=== PATIENT | female | born 1945 | race Caucasian/White ===

== ENCOUNTER 2022-03-28 10:38 | Day surgery (SDC) | payer MEDICARE, OTHER ==
[2022-03-24 14:08] VITALS: BMI 39.8
== END 2022-03-28 15:30 | disposition home or self-care (01) ==
LOC: CSHSDC 10:38
PROVIDERS: ATTEND Surgery
PROC: 0DD68ZX Extraction of Stomach, Via Natural or Artificial Opening Endoscopic, Diagnostic (ICD-10-PCS; principal; 2022-03-28)
DX: K29.50 Unspecified chronic gastritis without bleeding (principal); K31.A0 Gastric intestinal metaplasia, unspecified; K21.9 Gastro-esophageal reflux disease without esophagitis; K44.9 Diaphragmatic hernia without obstruction or gangrene; K31.7 Polyp of stomach and duodenum; I48.91 Unspecified atrial fibrillation; E66.9 Obesity, unspecified; Z87.891 Personal history of nicotine dependence; E11.9 Type 2 diabetes mellitus without complications; Z95.0 Presence of cardiac pacemaker; Z79.899 Other long term (current) drug therapy; Z88.8 Allergy status to other drugs, medicaments and biological substances; Z68.37 Body mass index [BMI] 37.0-37.9, adult
CPT/HCPCS: 88305; 88342

== ENCOUNTER 2024-04-17 16:12 | Emergency (ER) | payer MEDICARE, OTHER ==
[2024-04-17] MEDS ORDERED: Acetaminophen 500 MG TAB ONE (16:40)
[2024-04-17 17:52] LABS: #Basophils 0.03 10x3/uL (0.0-0.2); #Eosinophils 0.07 10x3/uL (0.0-0.5); #Monocytes 0.52 10x3/uL (0.0-1.1); #Neutrophils 4.22 10x3/uL (1.5-8.4); %Basophils 0.4 % (0.0-2.0); %Lymphocytes 27.5 % (18.0-47.0); %Monocytes 7.8 % (0.0-10.0); Hematocrit 44.2 % (34.9-44.5); Hemoglobin 14.2 g/dL (12.0-15.5); Mean Corpuscular HGB CONC 32.1 g/dL (32.0-36.0); Mean Corpuscular Volume 90.2 fL (81.6-98.3); Mean Platelet Volume 10.1 fL (7.4-10.4); Platelet Count 258 10x3/uL (150-450); RBC Distribution Width 12.3 % (11.5-14.5)
[2024-04-17 18:25] LABS: ALT (SGPT) 8 U/L (Less than 34); AST (SGOT) 17 U/L (11-34); Albumin 3.8 g/dL (3.1-4.5); Alkaline Phosphatase 76 U/L (40-110); Anion Gap 11 mmol/L (10-20); BUN (Urea Nitrogen) 21 mg/dL (9.8-20.1); Bilirubin, Total 0.2 mg/dL (0.3-1.2); Calc. Creatinine Clearance 0 mL/min (70-130); Calcium 9.1 mg/dL (7.8-10.44); Carbon Dioxide 27 mmol/L (23-31); Chloride 102 mmol/L (98-107); Estimated GFR 54; Globulin 3.7 g/dL (2.4-3.5); Glucose 104 mg/dL (83-110); Potassium 4.3 mmol/L (3.5-5.1); Protein, Total 7.5 g/dL (5.8-8.1); Sodium 136 mmol/L (136-145)
[2024-04-17 18:39] LABS: INR-International Normal Ratio 1.1; PTT 28.3 sec (22.0-33.0); Prothrombin Time 11.4 sec (9.5-12.1)
== END 2024-04-17 20:00 | disposition home or self-care (01) ==
LOC: CSHERS 16:12
DX: M10.072 Idiopathic gout, left ankle and foot (principal); I10 Essential (primary) hypertension; E11.9 Type 2 diabetes mellitus without complications
CPT/HCPCS: 36415; 80053; 85025; 85610; 85730; 86140